=== PATIENT | male | born 1990 | race Two or more races ===

== ENCOUNTER → 2021-08-10 | Emergency (ER) | payer MEDICAID, OTHER ==
[~2021-08-10] VITALS: Ht 180.3 cm; Wt 108.0 kg
[~2021-08-10] MED LIST: ACETAMINOPHEN 325 MG TAB PO ONE
[2021-08-10 18:30] VITALS: BP 147/94
== END | disposition home or self-care (01) ==
LOC: ER 18:31
DX: S39.011A Strain of muscle, fascia and tendon of abdomen, initial encounter (principal); X58.XXXA Exposure to other specified factors, initial encounter; Y93.89 Activity, other specified; Y92.89 Other specified places as the place of occurrence of the external cause; Y99.8 Other external cause status
CPT/HCPCS: 76705